=== PATIENT | female | born 1995 | race African-American/Black ===

== ENCOUNTER 2024-09-12 18:19 | Emergency (ER) | payer MEDICAID ==
[~2024-09-12] VITALS: Ht 157.5 cm; Wt 64.0 kg
[2024-09-12 18:26] VITALS: O2SAT 100
[2024-09-12 18:46] LABS: CLARITY URINE CLEAR (CLEAR); COLOR URINE DARK YELLOW (YELLOW); GLUCOSE URINE NEGATIVE (NEGATIVE); KETONES URINE TRACE (NEGATIVE); LEUKOCYTE ESTERASE URINE NEGATIVE (NEGATIVE); NITRITE URINE POSITIVE (NEGATIVE); OCCULT BLOOD URINE TRACE (NEGATIVE); PH URINE 5.5 (4.5-8.0); PROTEIN URINE NEGATIVE (NEGATIVE); SPECIFIC GRAVITY URINE 1.024 (1.005-1.030); UROBILINOGEN URINE 1.0 E.U./dL (0.2-1.0)
[2024-09-12 19:03] LABS: BACTERIA URINE 1+; RBC URINE NONE SEEN /hpf (0-2); SQUAMOUS EPITHELIAL CELL URINE 2+ /lpf (RARE/1+); WBC URINE NONE SEEN /hpf (0-2)
[2024-09-12 20:48] VITALS: TEMP 36.8
[2024-09-12] MEDS ORDERED: METR70GE27 VG (21:04)
[2024-09-12] MEDS ORDERED: METR-167 MT (21:18)
[2024-09-12] MEDS ORDERED: NITR-87 MT (21:50)
[2024-09-12 21:53] VITALS: BP 133/85; PULSE 68; RESP 20; O2SAT 100
== END 2024-09-12 22:15 | disposition home or self-care (01) ==
LOC: ER 18:19
DX: N39.0 Urinary tract infection, site not specified (principal); Z98.890 Other specified postprocedural states
CPT/HCPCS: 81003; 81025; 87210; 99283